=== PATIENT | female | born 1960 | race African-American/Black ===

== ENCOUNTER 2020-10-31 07:12 | Inpatient (IN) ==
[2020-10-31] MEDS ORDERED: ONDANSETRON 4 MG/2 ML VIAL IV STA (07:30)
[2020-10-31] MEDS ORDERED: HYDROmorphone 2 MG/1 ML VIAL IV STA (07:30)
[2020-10-31] MEDS ORDERED: GLUCAGON 1 MG VIAL IM PRN ×2 (08:09)
[2020-10-31] MEDS ORDERED: ONDANSETRON 4 MG/2 ML VIAL IV PRN (08:09)
[2020-10-31] MEDS ORDERED: DEXTROSE 50% 25 GM/50 ML VIAL IV PRN ×2 (08:09)
[2020-10-31] MEDS ORDERED: ZALEPLON 5 MG CAPSULE PO PRN (08:09)
[2020-10-31] MEDS ORDERED: SODIUM CHLORIDE 0.9% 1,000 ML IV SCH (08:30)
[2020-10-31 08:45] LABS: Basophils # 0.1 10*3/uL (0.0-0.2); Basophils % 0.4 % (0.0-0.8); Eosinophils # 0.1 10*3/uL (0.0-0.87); Eosinophils % 0.6 % (0.00-10.9); Hematocrit 39.9 VOL% (35.7-47.0); Hemoglobin 12.8 GM/DL (12.0-16.0); Immature Granulocytes % 1.3 %; Immature Granulocytes Absolute 0.27 #; Lymphocytes # 2.5 10*3/uL (1.4-4.0); Lymphocytes % 11.8 % (21.3-54.2); Mean Corpuscular HGB Conc 32.1 GM/DL (32-36); Mean Corpuscular Volume 93.2 FL (87-102); Mean Platelet Volume 9.9 FL (9.6-12.0); Monocytes % 7.9 % (1.7-12.7); Platelet Count 342 T/CUMM (130-400); Red Blood Count 4.28 MC/CUMM (3.8-5.5); Red Cell Distribution Width 13.1 % (9.3-17.3); White Blood Count 21.3 T/CUMM (4-12)
[2020-10-31] MEDS: MORPHINE 4 MG/1 ML VIAL IV PRN ×2 (08:46→18:47)
[2020-10-31 08:56] LABS: INR 1.1; PT Patient Result 12.4 SECS (10.5-12.0); Partial Thromboplastin Time 24.1 SECS (23.9-33.8)
[2020-10-31 09:06] LABS: Alanine Aminotransferase 17 U/L (13-56); Albumin 3.7 G/DL (3.4-5.0); Alkaline Phosphatase 147 U/L (45-117); Aspartate Amino Transferase 8 U/L (0-37); Bilirubin,Total < 0.39 MG/DL (0.2-1.0); Blood Urea Nitrogen 49 MG/DL (7-18); Calcium 9.5 MG/DL (8.5-10.1); Carbon Dioxide 29 MMOL/L (21-32); Estimated Glom Filtration Rate 59 ML/MIN; Glucose 127 MG/DL (74-106); Osmolality,Calculated 291.5 MOS/KG (273-304); Sodium 139 MMOL/L (136-145); Total Protein 7.7 G/DL (6.4-8.2)
[2020-10-31 09:11] LABS: Lymphocytes 12 % (20-55); Platelet Estimate Adequate; Segmented Neutrophils 83 % (50-85); Total Cells Counted 100
[2020-10-31] MEDS ORDERED: FUROSEMIDE 20 MG TABLET PO PRN (10:17)
[2020-10-31] MEDS ORDERED: CYCLOBENZAPRINE 10 MG TABLET PO PRN (10:17)
[2020-10-31] MEDS: ENOXAPARIN 40 MG/0.4 ML SYRINGE SUBCUT SCH (11:20)
[2020-10-31] MEDS: INSULIN LISPRO 100 UNIT/ML SUBCUT SCH ×3 (17:02→22:21)
[2020-10-31] MEDS: ATORVASTATIN 40 MG TABLET PO SCH (18:39)
[2020-10-31] MEDS: OLMESARTAN 20 MG TABLET PO SCH (18:39)
[2020-10-31] MEDS: PANTOPRAZOLE 40 MG TABLET PO SCH (18:39)
[2020-10-31] MEDS: PREGABALIN 75 MG CAPSULE PO SCH (21:13)
[2020-10-31] MEDS: BETAMETHASONE DIPR 0.05% CREAM 15 GM TUBE TOP SCH (21:15)
[2020-10-31] MEDS: SKIN HEALING OINT (AQUAPHOR) 50 GM TUBE TOP SCH (21:15)
[2020-10-31] MEDS: INSULIN NPH 100 UNIT/ML SUBCUT SCH (22:22)
[2020-11-01] MEDS: MORPHINE 4 MG/1 ML VIAL IV PRN ×2 (01:09→09:25)
[2020-11-01 06:47] LABS: Basophils # 0.1 10*3/uL (0.0-0.2); Basophils % 0.4 % (0.0-0.8); Eosinophils # 0.4 10*3/uL (0.0-0.87); Eosinophils % 2.2 % (0.00-10.9); Hematocrit 36.5 VOL% (35.7-47.0); Hemoglobin 11.7 GM/DL (12.0-16.0); Immature Granulocytes % 0.8 %; Immature Granulocytes Absolute 0.13 #; Lymphocytes # 2.9 10*3/uL (1.4-4.0); Lymphocytes % 17.8 % (21.3-54.2); Mean Corpuscular HGB Conc 32.1 GM/DL (32-36); Mean Corpuscular Volume 94.1 FL (87-102); Mean Platelet Volume 9.9 FL (9.6-12.0); Monocytes % 9.5 % (1.7-12.7); Neutrophils % 69.3 % (38.7-73.9); Platelet Count 319 T/CUMM (130-400); Red Blood Count 3.88 MC/CUMM (3.8-5.5); Red Cell Distribution Width 13.3 % (9.3-17.3); White Blood Count 16.2 T/CUMM (4-12)
[2020-11-01 07:09] LABS: Calcium 8.8 MG/DL (8.5-10.1); Osmolality,Calculated 284.4 MOS/KG (273-304)
[2020-11-01] MEDS: INSULIN LISPRO 100 UNIT/ML SUBCUT SCH ×4 (08:39→20:43)
[2020-11-01] MEDS: INSULIN NPH 100 UNIT/ML SUBCUT SCH ×2 (08:39→21:38)
[2020-11-01] MEDS: OLMESARTAN 20 MG TABLET PO SCH (09:18)
[2020-11-01] MEDS: SPIRONOLACTONE 25 MG TABLET PO SCH (09:18)
[2020-11-01] MEDS ORDERED: ceFAZolin 2,000 MG/50 ML DUPLEX IV ONE (09:45)
[2020-11-01] MEDS ORDERED: VANCOMYCIN INJ 1,000 MG in SODIUM CHLORIDE 0.9% 250 ML IV ONE ×2 (09:45→21:00)
[2020-11-01] MEDS ORDERED: propofoL 200 MG/20 ML VIAL IV ONE (10:12)
[2020-11-01] MEDS ORDERED: SUCCINYLCHOLINE 200 MG/10 ML VIAL ONE (10:12)
[2020-11-01] MEDS ORDERED: MIDAZOLAM 2 MG/2 ML VIAL ONE (10:12)
[2020-11-01] MEDS ORDERED: LIDOCAINE 2% 5 ML VIAL ONE (10:12)
[2020-11-01] MEDS ORDERED: fentaNYL 100 MCG/2 ML VIAL ONE (10:12)
[2020-11-01] MEDS ORDERED: DEXAMETHASONE 4 MG/1 ML VIAL ONE ×2 (10:12→10:24)
[2020-11-01] MEDS ORDERED: ONDANSETRON 4 MG/2 ML VIAL ONE (10:12)
[2020-11-01] MEDS ORDERED: ROCURONIUM 50 MG/5 ML VIAL IV ONE (10:12)
[2020-11-01] MEDS ORDERED: (Semaglutide [Ozempic] 0.25 mg or 0.5 mg(2 mg/1.5 mL) Pen Injecto SUBCUT SCH (10:17)
[2020-11-01] MEDS ORDERED: LIDOCAINE 1% 5 ML VIAL ONE (10:24)
[2020-11-01] MEDS ORDERED: BUPIVACAINE MPF 0.25% 30 ML VIAL ONE (10:24)
[2020-11-01] MEDS ORDERED: DEXTROSE 50% 25 GM/50 ML VIAL IV ONE (10:56)
[2020-11-01] MEDS: PREGABALIN 75 MG CAPSULE PO SCH ×2 (11:29→20:20)
[2020-11-01] MEDS: PANTOPRAZOLE 40 MG TABLET PO SCH (11:29)
[2020-11-01] MEDS: ATORVASTATIN 40 MG TABLET PO SCH (11:29)
[2020-11-01] MEDS: GLUCOSAMINE 500 MG TABLET PO SCH (11:29)
[2020-11-01] MEDS: ENOXAPARIN 40 MG/0.4 ML SYRINGE SUBCUT SCH (11:29)
[2020-11-01] MEDS ORDERED: BACITRACIN OINT 0.9 GM PACK TOP ONE (12:36)
[2020-11-01] MEDS ORDERED: GLYCOPYRROLATE 0.4 MG/2 ML VIAL ONE ×2 (12:37→12:46)
[2020-11-01] MEDS ORDERED: NEOSTIGMINE 10 MG/10 ML VIAL ONE (12:37)
[2020-11-01] MEDS ORDERED: MAGNESIUM HYDROXIDE SUSP 30 ML UDCUP PO PRN (12:57)
[2020-11-01] MEDS ORDERED: diphenhydrAMINE CAP 25 MG CAPSULE PO PRN (12:58)
[2020-11-01] MEDS ORDERED: MORPHINE 4 MG/1 ML VIAL IV PRN ×2 (12:58)
[2020-11-01] MEDS ORDERED: HYDROmorphone 2 MG/1 ML VIAL ONE (13:20)
[2020-11-01] MEDS ORDERED: ONDANSETRON 4 MG/2 ML VIAL IV PRN (13:24)
[2020-11-01] MEDS: HYDROmorphone 2 MG/1 ML VIAL IV PRN ×2 (13:25→13:35)
[2020-11-01] MEDS: KETOROLAC 30 MG/1 ML VIAL IV SCH ×2 (13:34→20:20)
[2020-11-01] MEDS ORDERED: ROPIVACAINE 0.5% 30 ML VIAL ONE (13:36)
[2020-11-01] MEDS: LACTATED RINGERS 1,000 ML IV SCH ×2 (14:10→21:50)
[2020-11-01] MEDS: metFORMIN 500 MG TABLET PO SCH (17:30)
[2020-11-01] MEDS: ceFAZolin 2,000 MG/50 ML DUPLEX IV SCH (17:30)
[2020-11-01] MEDS: APIXABAN 2.5 MG TABLET PO SCH (20:20)
[2020-11-01] MEDS: DOCUSATE SODIUM 100 MG CAPSULE PO SCH (20:20)
[2020-11-01] MEDS: BETAMETHASONE DIPR 0.05% CREAM 15 GM TUBE TOP SCH (20:43)
[2020-11-01] MEDS: SKIN HEALING OINT (AQUAPHOR) 50 GM TUBE TOP SCH (20:43)
[2020-11-02] MEDS: KETOROLAC 30 MG/1 ML VIAL IV SCH ×2 (02:53→08:15)
[2020-11-02] MEDS: ceFAZolin 2,000 MG/50 ML DUPLEX IV SCH (02:54)
[2020-11-02] MEDS: LACTATED RINGERS 1,000 ML IV SCH (02:59)
[2020-11-02 06:48] LABS: Basophils % 0.1 % (0.0-0.8); Eosinophils % 0.1 % (0.00-10.9); Hematocrit 31.5 VOL% (35.7-47.0); Hemoglobin 10.1 GM/DL (12.0-16.0); Immature Granulocytes % 0.9 %; Immature Granulocytes Absolute 0.15 #; Lymphocytes # 1.3 10*3/uL (1.4-4.0); Lymphocytes % 7.7 % (21.3-54.2); Mean Corpuscular HGB Conc 32.1 GM/DL (32-36); Mean Platelet Volume 10.1 FL (9.6-12.0); Monocytes % 10.6 % (1.7-12.7); Neutrophils % 80.6 % (38.7-73.9); Platelet Count 296 T/CUMM (130-400); Red Blood Count 3.35 MC/CUMM (3.8-5.5); Red Cell Distribution Width 13.1 % (9.3-17.3); White Blood Count 16.8 T/CUMM (4-12)
[2020-11-02 07:13] LABS: Calcium 8.1 MG/DL (8.5-10.1); Potassium 5.1 MMOL/L (3.5-5.1)
[2020-11-02] MEDS: GLUCOSAMINE 500 MG TABLET PO SCH (08:16)
[2020-11-02] MEDS: metFORMIN 500 MG TABLET PO SCH ×2 (08:16→18:01)
[2020-11-02] MEDS: PANTOPRAZOLE 40 MG TABLET PO SCH (08:17)
[2020-11-02] MEDS: APIXABAN 2.5 MG TABLET PO SCH ×2 (08:17→20:22)
[2020-11-02] MEDS: DOCUSATE SODIUM 100 MG CAPSULE PO SCH ×2 (08:17→20:22)
[2020-11-02] MEDS: ATORVASTATIN 40 MG TABLET PO SCH (08:17)
[2020-11-02] MEDS: PREGABALIN 75 MG CAPSULE PO SCH ×2 (08:17→20:22)
[2020-11-02] MEDS: SPIRONOLACTONE 25 MG TABLET PO SCH (08:17)
[2020-11-02] MEDS: OLMESARTAN 20 MG TABLET PO SCH (08:42)
[2020-11-02] MEDS: INSULIN NPH 100 UNIT/ML SUBCUT SCH ×2 (08:42→20:23)
[2020-11-02] MEDS: INSULIN LISPRO 100 UNIT/ML SUBCUT SCH ×4 (08:42→20:24)
[2020-11-02] MEDS: SENNA 8.6 MG TABLET PO SCH (20:23)
[2020-11-02] MEDS: SKIN HEALING OINT (AQUAPHOR) 50 GM TUBE TOP SCH (20:23)
[2020-11-02] MEDS: BETAMETHASONE DIPR 0.05% CREAM 15 GM TUBE TOP SCH (20:23)
[2020-11-02] MEDS: POLYETHYLENE GLYCOL POWDER 17 GM PACK PO SCH (20:25)
[2020-11-03] MEDS ORDERED: SODIUM CHLORIDE 0.9% 1,000 ML IV ONE (00:42)
[2020-11-03] MEDS: INSULIN NPH 100 UNIT/ML SUBCUT SCH ×2 (08:08→20:47)
[2020-11-03] MEDS: INSULIN LISPRO 100 UNIT/ML SUBCUT SCH ×4 (08:09→20:47)
[2020-11-03] MEDS: POLYETHYLENE GLYCOL POWDER 17 GM PACK PO SCH ×2 (09:05→21:49)
[2020-11-03] MEDS: GLUCOSAMINE 500 MG TABLET PO SCH (09:06)
[2020-11-03] MEDS: OLMESARTAN 20 MG TABLET PO SCH (09:06)
[2020-11-03] MEDS: metFORMIN 500 MG TABLET PO SCH ×2 (09:06→18:11)
[2020-11-03] MEDS: SPIRONOLACTONE 25 MG TABLET PO SCH (09:06)
[2020-11-03] MEDS: PREGABALIN 75 MG CAPSULE PO SCH ×2 (09:06→21:47)
[2020-11-03] MEDS: PANTOPRAZOLE 40 MG TABLET PO SCH (09:06)
[2020-11-03] MEDS: LINACLOTIDE 145 MCG CAPSULE PO SCH (09:06)
[2020-11-03] MEDS: DOCUSATE SODIUM 100 MG CAPSULE PO SCH ×2 (09:07→21:48)
[2020-11-03] MEDS: APIXABAN 2.5 MG TABLET PO SCH ×2 (09:07→21:48)
[2020-11-03] MEDS: ATORVASTATIN 40 MG TABLET PO SCH (09:07)
[2020-11-03 10:44] LABS: Calcium 8.2 MG/DL (8.5-10.1); Osmolality,Calculated 294.8 MOS/KG (273-304); Potassium 4.8 MMOL/L (3.5-5.1)
[2020-11-03] MEDS: SODIUM CHLORIDE 0.9% 500 ML IV SCH ×2 (14:00→16:04)
[2020-11-03] MEDS: LACTULOSE 20 GM/30 ML UDCUP PO SCH ×2 (15:57→21:48)
[2020-11-03] MEDS: ALVIMOPAN 12 MG CAPSULE PO SCH (21:47)
[2020-11-03] MEDS: SENNA 8.6 MG TABLET PO SCH (21:48)
[2020-11-03] MEDS: SKIN HEALING OINT (AQUAPHOR) 50 GM TUBE TOP SCH (21:48)
[2020-11-03] MEDS: BETAMETHASONE DIPR 0.05% CREAM 15 GM TUBE TOP SCH (21:48)
[2020-11-03] MEDS: LUBIPROSTONE 8 MCG CAPSULE PO SCH (21:50)
[2020-11-04 06:12] LABS: Basophils % 0.2 % (0.0-0.8); Eosinophils # 0.4 10*3/uL (0.0-0.87); Eosinophils % 2.3 % (0.00-10.9); Hematocrit 29.5 VOL% (35.7-47.0); Hemoglobin 9.3 GM/DL (12.0-16.0); Immature Granulocytes % 0.8 %; Immature Granulocytes Absolute 0.13 #; Lymphocytes % 11.9 % (21.3-54.2); Mean Corpuscular HGB Conc 31.5 GM/DL (32-36); Mean Corpuscular Volume 96.4 FL (87-102); Mean Platelet Volume 10.3 FL (9.6-12.0); Monocytes % 9.9 % (1.7-12.7); Neutrophils % 74.9 % (38.7-73.9); Platelet Count 282 T/CUMM (130-400); Red Blood Count 3.06 MC/CUMM (3.8-5.5); Red Cell Distribution Width 13.6 % (9.3-17.3); White Blood Count 16.7 T/CUMM (4-12)
[2020-11-04 06:32] LABS: Calcium 8.3 MG/DL (8.5-10.1); Potassium 4.4 MMOL/L (3.5-5.1)
[2020-11-04] MEDS: INSULIN LISPRO 100 UNIT/ML SUBCUT SCH ×4 (07:26→21:03)
[2020-11-04] MEDS: PREGABALIN 75 MG CAPSULE PO SCH ×2 (08:10→20:52)
[2020-11-04] MEDS: ALVIMOPAN 12 MG CAPSULE PO SCH ×2 (08:10→20:52)
[2020-11-04] MEDS: LINACLOTIDE 145 MCG CAPSULE PO SCH (08:10)
[2020-11-04] MEDS: APIXABAN 2.5 MG TABLET PO SCH ×2 (08:10→20:52)
[2020-11-04] MEDS: GLUCOSAMINE 500 MG TABLET PO SCH (08:10)
[2020-11-04] MEDS: metFORMIN 500 MG TABLET PO SCH ×2 (08:10→16:48)
[2020-11-04] MEDS: DOCUSATE SODIUM 100 MG CAPSULE PO SCH ×2 (08:11→21:02)
[2020-11-04] MEDS: SPIRONOLACTONE 25 MG TABLET PO SCH (08:11)
[2020-11-04] MEDS: OLMESARTAN 20 MG TABLET PO SCH (08:11)
[2020-11-04] MEDS: PANTOPRAZOLE 40 MG TABLET PO SCH (08:11)
[2020-11-04] MEDS: ATORVASTATIN 40 MG TABLET PO SCH (08:11)
[2020-11-04] MEDS: LUBIPROSTONE 8 MCG CAPSULE PO SCH ×2 (08:11→20:52)
[2020-11-04] MEDS: LACTULOSE 20 GM/30 ML UDCUP PO SCH ×3 (08:57→21:02)
[2020-11-04] MEDS: INSULIN NPH 100 UNIT/ML SUBCUT SCH ×2 (08:58→21:03)
[2020-11-04] MEDS: POLYETHYLENE GLYCOL POWDER 17 GM PACK PO SCH ×2 (08:58→21:04)
[2020-11-04 10:06] LABS: Bacteria,Urine Occasional /HPF (Few); Bilirubin,Urine Negative (Negative); Blood, Urine Large mg/dL (Negative); Glucose,Urine (UA) Negative (Negative); Ketones,Urine Negative (Negative); Nitrite,Urine Negative (Negative); Protein,Urine Negative; RBC,Urine 187 /HPF (0-4); Squamous Epithelial Cell,Urine Occasional /HPF (0-10); Urine Appearance CLEAR (Clear); Urine Color Yellow (Yellow); Urine Specific Gravity 1.014 (1.001-1.035); Urine Urobilinogen < 2.0 EU/DL (0.2-1.0)
[2020-11-04] MEDS ORDERED: SODIUM CHLORIDE 0.9% 250 ML IV ONE (12:41)
[2020-11-04] MEDS: SKIN HEALING OINT (AQUAPHOR) 50 GM TUBE TOP SCH (20:53)
[2020-11-04] MEDS: SENNA 8.6 MG TABLET PO SCH (20:53)
[2020-11-04] MEDS: BETAMETHASONE DIPR 0.05% CREAM 15 GM TUBE TOP SCH (21:03)
[2020-11-05 05:36] LABS: Basophils # 0.1 10*3/uL (0.0-0.2); Basophils % 0.4 % (0.0-0.8); Eosinophils # 0.4 10*3/uL (0.0-0.87); Eosinophils % 2.7 % (0.00-10.9); Hemoglobin 8.3 GM/DL (12.0-16.0); Immature Granulocytes % 0.8 %; Immature Granulocytes Absolute 0.11 #; Lymphocytes # 2.2 10*3/uL (1.4-4.0); Lymphocytes % 16.2 % (21.3-54.2); Mean Corpuscular HGB Conc 31.9 GM/DL (32-36); Mean Corpuscular Volume 95.9 FL (87-102); Mean Platelet Volume 9.8 FL (9.6-12.0); Monocytes % 9.2 % (1.7-12.7); Neutrophils % 70.7 % (38.7-73.9); Platelet Count 301 T/CUMM (130-400); Red Blood Count 2.71 MC/CUMM (3.8-5.5); Red Cell Distribution Width 13.6 % (9.3-17.3); White Blood Count 13.5 T/CUMM (4-12)
[2020-11-05 05:55] LABS: Calcium 8.5 MG/DL (8.5-10.1); Osmolality,Calculated 296.1 MOS/KG (273-304); Potassium 4.4 MMOL/L (3.5-5.1)
[2020-11-05] MEDS ORDERED: SODIUM CHLORIDE 0.9% 1,000 ML IV PRN (08:14)
[2020-11-05] MEDS: INSULIN LISPRO 100 UNIT/ML SUBCUT SCH ×3 (08:50→17:25)
[2020-11-05] MEDS: LACTULOSE 20 GM/30 ML UDCUP PO SCH ×2 (08:51→15:41)
[2020-11-05] MEDS: POLYETHYLENE GLYCOL POWDER 17 GM PACK PO SCH (08:51)
[2020-11-05] MEDS: INSULIN NPH 100 UNIT/ML SUBCUT SCH (09:02)
[2020-11-05] MEDS: DOCUSATE SODIUM 100 MG CAPSULE PO SCH (09:22)
[2020-11-05] MEDS: LINACLOTIDE 145 MCG CAPSULE PO SCH (09:22)
[2020-11-05] MEDS: GLUCOSAMINE 500 MG TABLET PO SCH (09:22)
[2020-11-05] MEDS: PANTOPRAZOLE 40 MG TABLET PO SCH (09:22)
[2020-11-05] MEDS: metFORMIN 500 MG TABLET PO SCH ×2 (09:22→17:29)
[2020-11-05] MEDS: APIXABAN 2.5 MG TABLET PO SCH (09:23)
[2020-11-05] MEDS: LUBIPROSTONE 8 MCG CAPSULE PO SCH (09:23)
[2020-11-05] MEDS: ATORVASTATIN 40 MG TABLET PO SCH (09:23)
[2020-11-05] MEDS: ALVIMOPAN 12 MG CAPSULE PO SCH (09:23)
[2020-11-05] MEDS: PREGABALIN 75 MG CAPSULE PO SCH (09:23)
[2020-11-05 14:48] LABS: Hemoglobin 9.9 GM/DL (12.0-16.0)
[2020-11-05] MEDS ORDERED: SPIRONOLACTONE 25 MG TABLET PO SCH (15:05)
[2020-11-05] MEDS ORDERED: OLMESARTAN 20 MG TABLET PO SCH (15:05)
[2020-11-05 16:53] VITALS: BP 122/61
== END 2020-11-05 18:25 | DRG 522 ==
LOC: EDUNIT# → EDBD → N.ED 07:12 → N.EDINP 08:09 → SUATTDRO 08:09 → N.3E 14:48
PROVIDERS: ADMIT Family Medicine; ATTEND Hospitalist

== ENCOUNTER 2021-08-25 13:50 | Inpatient (IN) ==
[2021-08-25] MEDS ORDERED: SODIUM CHLORIDE 0.9% 1,000 ML IV STA (14:29)
[2021-08-25 14:43] LABS: Basophils % 0.2 % (0.0-0.8); Eosinophils % 0.1 % (0.00-10.9); Hematocrit 48.1 VOL% (35.7-47.0); Hemoglobin 15.7 GM/DL (12.0-16.0); Immature Granulocytes % 1.3 %; Immature Granulocytes Absolute 0.19 #; Lymphocytes % 7.2 % (21.3-54.2); Mean Corpuscular HGB Conc 32.6 GM/DL (32-36); Mean Corpuscular Volume 95.1 FL (87-102); Monocytes % 6.1 % (1.7-12.7); Neutrophils % 85.1 % (38.7-73.9); Platelet Count 372 T/CUMM (130-400); Red Blood Count 5.06 MC/CUMM (3.8-5.5); Red Cell Distribution Width 12.8 % (9.3-17.3); White Blood Count 14.3 T/CUMM (4-12)
[2021-08-25 14:52] LABS: Glucose,Urine (UA) >=1000 mg/dL (Negative); Ketones,Urine 80 mg/dL (Negative); Nitrite,Urine Negative (Negative); Protein,Urine Negative (Negative); Urine Appearance Clear (Clear); Urine Color Yellow (Yellow); Urine pH 5.5 (4.5-8.0)
[2021-08-25 14:53] LABS: Bilirubin,Urine Small mg/dL (Negative); Blood, Urine Moderate mg/dL (Negative); Urine Urobilinogen 0.2 eU/dL (<2.0)
[2021-08-25 14:54] LABS: INR 1.1; PT Patient Result 12.4 SECS (10.5-12.0); Partial Thromboplastin Time 21.4 SECS (23.8-32.1)
[2021-08-25 14:57] LABS: Albumin 3.2 G/DL (3.4-5.0); Bilirubin,Total 0.6 MG/DL (0.20-1.00); Calcium 9.8 MG/DL (8.5-10.1); Osmolality,Calculated 317.1 MOS/KG (273-304); Potassium 3.7 MMOL/L (3.5-5.1); Total Protein 7.3 G/DL (6.4-8.2)
[2021-08-25] MEDS ORDERED: INSULIN LISPRO 100 UNIT/ML SUBCUT STA (15:02)
[2021-08-25 15:03] LABS: Barbiturates Screen,Urine Negative (Negative); Benzodiazepines Screen,Urine Negative (Negative); Cannabinoid Screen,Urine Negative (Negative); Opiate Screen,Urine Negative (Negative); Phencyclidine Screen,Urine Negative (Negative)
[2021-08-25 15:05] LABS: Bacteria,Urine Occasional /HPF (Few); Hyaline Casts,Urine 1 /LPF (0-3); Mucus,Urine Occasional /LPF (Occasional); RBC,Urine 7 /HPF (0-4); Squamous Epithelial Cell,Urine Occasional /HPF (0-10); Transitional Epi Cells,Urine Occasional /HPF (<1)
[2021-08-25] MEDS ORDERED: cefTRIAXone 1,000 MG in SODIUM CHLORIDE 0.9% 100 ML IV STA (15:15)
[2021-08-25] MEDS ORDERED: GLUCAGON 1 MG VIAL IM PRN ×2 (16:09)
[2021-08-25] MEDS ORDERED: ONDANSETRON 4 MG/2 ML VIAL IV PRN (16:09)
[2021-08-25] MEDS ORDERED: DEXTROSE 50% 25 GM/50 ML VIAL IV PRN (16:09)
[2021-08-25] MEDS ORDERED: SODIUM CHLORIDE 0.9% 1,000 ML IV ONE (16:12)
[2021-08-25] MEDS ORDERED: DEXTROSE 10% 250 ML BAG IV PRN (16:24)
[2021-08-25] MEDS: INSULIN LISPRO 100 UNIT/ML SUBCUT SCH ×3 (16:45→21:35)
[2021-08-25] MEDS: SODIUM CHLORIDE 0.9% 1,000 ML IV SCH (17:40)
[2021-08-25] MEDS: APIXABAN 2.5 MG TABLET PO SCH (21:36)
[2021-08-25 22:20] LABS: Calcium 8.6 MG/DL (8.5-10.1); Osmolality,Calculated 313.6 MOS/KG (273-304)
[2021-08-26] MEDS: SODIUM CHLORIDE 0.9% 1,000 ML IV SCH ×2 (00:33→12:53)
[2021-08-26] MEDS: ACETAMINOPHEN 325 MG TABLET PO PRN ×2 (06:06→12:48)
[2021-08-26 08:10] LABS: Basophils % 0.2 % (0.0-0.8); Eosinophils % 0.2 % (0.00-10.9); Hematocrit 43.6 VOL% (35.7-47.0); Hemoglobin 14.5 GM/DL (12.0-16.0); Immature Granulocytes % 0.6 %; Immature Granulocytes Absolute 0.09 #; Lymphocytes # 1.9 10*3/uL (1.4-4.0); Lymphocytes % 12.6 % (21.3-54.2); Mean Corpuscular HGB Conc 33.3 GM/DL (32-36); Mean Corpuscular Volume 93.6 FL (87-102); Mean Platelet Volume 10.7 FL (9.6-12.0); Monocytes % 10.1 % (1.7-12.7); Neutrophils % 76.3 % (38.7-73.9); Platelet Count 267 T/CUMM (130-400); Red Blood Count 4.66 MC/CUMM (3.8-5.5); Red Cell Distribution Width 12.8 % (9.3-17.3); White Blood Count 14.7 T/CUMM (4-12)
[2021-08-26 08:34] LABS: Calcium 8.7 MG/DL (8.5-10.1); Osmolality,Calculated 301.1 MOS/KG (273-304)
[2021-08-26] MEDS: INSULIN LISPRO 100 UNIT/ML SUBCUT SCH ×7 (11:30→21:15)
[2021-08-26] MEDS: PANTOPRAZOLE 40 MG TABLET PO SCH (11:30)
[2021-08-26] MEDS: APIXABAN 2.5 MG TABLET PO SCH ×2 (11:30→20:33)
[2021-08-26] MEDS: POTASSIUM CHLORIDE 20 MEQ TABLET PO PRN ×4 (11:30→19:03)
[2021-08-26] MEDS: INSULIN GLARGINE 100 UNIT/ML SUBCUT SCH (11:31)
[2021-08-26] MEDS: cefTRIAXone 2,000 MG in SODIUM CHLORIDE 0.9% 100 ML IV SCH ×2 (17:07→23:12)
[2021-08-26] MEDS: PREGABALIN 75 MG CAPSULE PO SCH ×2 (17:07→20:32)
[2021-08-27] MEDS: SODIUM CHLORIDE 0.9% 1,000 ML IV SCH ×4 (04:18→22:24)
[2021-08-27 04:51] LABS: Calcium 8.2 MG/DL (8.5-10.1)
[2021-08-27] MEDS: INSULIN LISPRO 100 UNIT/ML SUBCUT SCH ×7 (09:51→22:26)
[2021-08-27] MEDS: INSULIN GLARGINE 100 UNIT/ML SUBCUT SCH (09:52)
[2021-08-27] MEDS: PANTOPRAZOLE 40 MG TABLET PO SCH (09:53)
[2021-08-27] MEDS: PREGABALIN 75 MG CAPSULE PO SCH ×3 (09:53→22:24)
[2021-08-27] MEDS: APIXABAN 2.5 MG TABLET PO SCH ×2 (09:53→22:24)
[2021-08-27] MEDS ORDERED: POTASSIUM CHLORIDE 20 MEQ TABLET PO ONE (13:00)
[2021-08-27] MEDS: ACETAMINOPHEN 325 MG TABLET PO PRN (22:24)
[2021-08-28] MEDS: SODIUM CHLORIDE 0.9% 1,000 ML IV SCH ×3 (02:16→20:48)
[2021-08-28 05:56] LABS: Basophils % 0.3 % (0.0-0.8); Eosinophils # 0.1 10*3/uL (0.0-0.87); Eosinophils % 1.9 % (0.00-10.9); Hematocrit 38.3 VOL% (35.7-47.0); Hemoglobin 12.6 GM/DL (12.0-16.0); Immature Granulocytes % 0.3 %; Immature Granulocytes Absolute 0.02 #; Lymphocytes # 1.6 10*3/uL (1.4-4.0); Lymphocytes % 25.8 % (21.3-54.2); Mean Corpuscular HGB Conc 32.9 GM/DL (32-36); Mean Platelet Volume 11.1 FL (9.6-12.0); Monocytes % 10.3 % (1.7-12.7); Neutrophils % 61.4 % (38.7-73.9); Platelet Count 191 T/CUMM (130-400); Red Blood Count 4.03 MC/CUMM (3.8-5.5); Red Cell Distribution Width 12.5 % (9.3-17.3); White Blood Count 6.2 T/CUMM (4-12)
[2021-08-28 06:19] LABS: Calcium 8.3 MG/DL (8.5-10.1); Osmolality,Calculated 275.7 MOS/KG (273-304)
[2021-08-28] MEDS: INSULIN LISPRO 100 UNIT/ML SUBCUT SCH ×6 (08:39→20:47)
[2021-08-28] MEDS: PANTOPRAZOLE 40 MG TABLET PO SCH (08:39)
[2021-08-28] MEDS: INSULIN GLARGINE 100 UNIT/ML SUBCUT SCH (08:40)
[2021-08-28] MEDS: APIXABAN 2.5 MG TABLET PO SCH ×2 (08:40→20:48)
[2021-08-28] MEDS: PREGABALIN 75 MG CAPSULE PO SCH ×3 (08:40→20:48)
[2021-08-28] MEDS ORDERED: POTASSIUM CHLORIDE 20 MEQ TABLET PO ONE ×2 (11:00→16:14)
[2021-08-28] MEDS ORDERED: LACTULOSE 20 GM/30 ML UDCUP PO ONE (15:55)
[2021-08-28] MEDS: metFORMIN 500 MG TABLET PO SCH (16:48)
[2021-08-28] MEDS: POLYETHYLENE GLYCOL POWDER 17 GM PACK PO SCH (20:48)
[2021-08-28] MEDS: DOCUSATE SODIUM 100 MG CAPSULE PO SCH (20:48)
[2021-08-29] MEDS: SODIUM CHLORIDE 0.9% 1,000 ML IV SCH ×3 (04:17→18:12)
[2021-08-29 05:25] LABS: Basophils % 0.6 % (0.0-0.8); Eosinophils # 0.2 10*3/uL (0.0-0.87); Eosinophils % 2.9 % (0.00-10.9); Hematocrit 38.8 VOL% (35.7-47.0); Hemoglobin 12.8 GM/DL (12.0-16.0); Immature Granulocytes % 0.6 %; Immature Granulocytes Absolute 0.04 #; Lymphocytes # 1.4 10*3/uL (1.4-4.0); Lymphocytes % 22.5 % (21.3-54.2); Mean Corpuscular Volume 93.9 FL (87-102); Mean Platelet Volume 10.6 FL (9.6-12.0); Neutrophils % 62.4 % (38.7-73.9); Platelet Count 160 T/CUMM (130-400); Red Blood Count 4.13 MC/CUMM (3.8-5.5); Red Cell Distribution Width 12.6 % (9.3-17.3); White Blood Count 6.3 T/CUMM (4-12)
[2021-08-29 05:45] LABS: Calcium 8.1 MG/DL (8.5-10.1); Potassium 3.6 MMOL/L (3.5-5.1)
[2021-08-29 05:49] LABS: Folate 12.41 NG/ML (5.38-24.0); Vitamin B12 639 PG/ML (211-911)
[2021-08-29 06:37] LABS: Sedimentation Rate-Westergren 32 MM/HR (0-30)
[2021-08-29 08:27] LABS: Hemoglobin A1 (Alkaline) 97.6 % (96.5-98.5); Hemoglobin A2 (Alkaline) 2.4 % (1.5-3.5)
[2021-08-29] MEDS ORDERED: INSULIN GLARGINE 100 UNIT/ML SUBCUT SCH (09:00)
[2021-08-29] MEDS ORDERED: CYANOCOBALAMIN 500 MCG TABLET PO SCH (09:00)
[2021-08-29] MEDS ORDERED: DAPAGLIFLOZIN 5 MG TABLET PO SCH (09:00)
[2021-08-29] MEDS: metFORMIN 500 MG TABLET PO SCH (10:17)
[2021-08-29] MEDS: POLYETHYLENE GLYCOL POWDER 17 GM PACK PO SCH (10:18)
[2021-08-29] MEDS: DOCUSATE SODIUM 100 MG CAPSULE PO SCH (10:18)
[2021-08-29] MEDS: APIXABAN 2.5 MG TABLET PO SCH (10:20)
[2021-08-29] MEDS: PREGABALIN 75 MG CAPSULE PO SCH ×2 (10:20→14:32)
[2021-08-29] MEDS: PANTOPRAZOLE 40 MG TABLET PO SCH (10:21)
[2021-08-29] MEDS: INSULIN LISPRO 100 UNIT/ML SUBCUT SCH ×3 (10:23→17:19)
[2021-08-29 16:02] VITALS: BP 122/81
== END 2021-08-29 18:09 | disposition home or self-care (01) | DRG 637 ==
LOC: SUATTDRO → N.ED 13:50 → N.EDINP 13:50 → SUATTDRO 16:09 → N.EDINP 22:58 → N.5E 23:05 → SUATTDRO 08-27 10:58
PROVIDERS: ADMIT Emergency Medicine; ATTEND Family Medicine